=== PATIENT | male | born 1950 | race Asian ===

== ENCOUNTER 2016-11-15 06:53 | Day surgery (SDC) | END 2016-11-15 12:40 | disposition home or self-care (01) | DX: K40.30 Unilateral inguinal hernia, with obstruction, without gangrene, not specified as recurrent (principal); E78.00 Pure hypercholesterolemia, unspecified | CPT/HCPCS: 49507; C1781; J0690; J1100; J1885; J2250; J2405; J3010; Z7512; Z7610 ==